=== PATIENT | male | born 1935 | race Caucasian/White ===

== ENCOUNTER 2017-01-30 07:04 | Day surgery (SDC) | payer MEDICARE, BC ==
[2017-01-30 09:36] VITALS: BP 133/78
== END 2017-01-30 09:12 | disposition home or self-care (01) ==
LOC: SDC 07:04
PROVIDERS: Ophthalmology
PROC: 08RK3JZ Replacement of Left Lens with Synthetic Substitute, Percutaneous Approach (ICD-10-PCS; principal; 2017-01-30 08:30)
DX: H25.9 Unspecified age-related cataract (principal); E11.9 Type 2 diabetes mellitus without complications
CPT/HCPCS: V2632